=== PATIENT | female | born 1980 | race Caucasian/White ===

== ENCOUNTER 2019-05-11 18:59 | Emergency (ER) | payer OTHER ==
[~2019-05-11] VITALS: Ht 170.1 cm; Wt 112.5 kg
[~2019-05-11 18:59] MED LIST: BACTRIM DS 8001 TA1 PO; BIAXIN500 MG PO; CIPRO500 MG PO; CITALOPRAM20 MG PO; DEXAMETHASONE/TO5 ML OPH; HYDROCODONE BIT1 T11 PO; LISINOPRIL30 MG PO; METFORMIN HYDR500 MG PO; MOTRIN800 MG PO; SUMYCIN,ACHROM500 M1 PO
[2019-05-11 19:01] VITALS: BP 171/83
[2019-05-11] MEDS ORDERED: IBUPROFEN600 MG PO (20:36)
== END 2019-05-11 20:13 | disposition home or self-care (01) ==
LOC: ED 18:59
DX: S63.501A Unspecified sprain of right wrist, initial encounter (principal); I10 Essential (primary) hypertension; Z91.040 Latex allergy status; Z79.899 Other long term (current) drug therapy; W10.8XXA Fall (on) (from) other stairs and steps, initial encounter; Y93.89 Activity, other specified; Y92.89 Other specified places as the place of occurrence of the external cause; Y99.8 Other external cause status

== ENCOUNTER 2022-12-29 11:52 | Emergency (ER) | payer OTHER ==
[~2022-12-29] VITALS: Ht 170.1 cm; Wt 113.4 kg
[~2022-12-29 11:52] MED LIST changes: +IBUPROFEN600 MG PO
[2022-12-29 12:08] VITALS: BP 164/84
[2022-12-29] MEDS ORDERED: PREDNISONE20 M1 PO (12:30)
[2022-12-29] MEDS ORDERED: ARTIFICIAL TEAR1514 OP (12:30)
[2022-12-29] MEDS ORDERED: ARTIFICIAL EYE3.5 GM OP (12:30)
[2022-12-29] MEDS ORDERED: VALTREX1000 MG PO (12:30)
== END 2022-12-29 12:53 | disposition home or self-care (01) ==
LOC: ED 11:52
PROVIDERS: Nurse Practitioner Family
DX: G51.0 Bell's palsy (principal); E11.9 Type 2 diabetes mellitus without complications; I10 Essential (primary) hypertension; Z79.899 Other long term (current) drug therapy

== ENCOUNTER → 2024-10-07 | Outpatient (CLI) | payer OTHER ==
[~2024-10-07] MED LIST changes: +ARTIFICIAL EYE3.5 GM OP; +ARTIFICIAL TEAR1514 OP; +PERFLUTREN PROTEIN-A MICROSPHR 3 ML VIAL IV ONE; +PREDNISONE20 M1 PO; +VALTREX1000 MG PO
== END | disposition home or self-care (01) ==
LOC: CARD 13:46
PROVIDERS: ATTEND Family Medicine
DX: E11.59 Type 2 diabetes mellitus with other circulatory complications (principal); I15.2 Hypertension secondary to endocrine disorders

== ENCOUNTER 2025-02-07 18:02 | Emergency (ER) | payer OTHER ==
[~2025-02-07] VITALS: Ht 170.1 cm; Wt 113.4 kg
[~2025-02-07 18:02] MED LIST changes: -PERFLUTREN PROTEIN-A MICROSPHR 3 ML VIAL IV ONE
[2025-02-07 18:13] VITALS: BP 178/85
[2025-02-07] MEDS ORDERED: Lidocaine Hydrochloride 30 ML VIAL SC ONE (18:25)
[2025-02-07] MEDS ORDERED: Acetaminophen/Hydrocodone 5 MG/325 MG TABLET PO ONE (18:30)
[2025-02-07] MEDS ORDERED: Sulfamethoxazole/Trimethopri 1 TAB TAB PO ONE (18:30)
[2025-02-07] MEDS ORDERED: Ondansetron Hydrochloride 4 MG TAB PO ONE (18:30)
[2025-02-07] MEDS ORDERED: SEPTDS PO (18:32)
== END 2025-02-07 19:09 | disposition home or self-care (01) ==
LOC: ED 18:02
DX: N61.1 Abscess of the breast and nipple (principal); Z79.899 Other long term (current) drug therapy

== ENCOUNTER → 2025-04-27 | Outpatient (CLI) | payer OTHER ==
[~2025-04-27] MED LIST changes: +SEPTDS PO
== END | disposition home or self-care (01) ==
LOC: MRI 13:20
PROVIDERS: ATTEND Orthopaedic Surgery
DX: M17.12 Unilateral primary osteoarthritis, left knee (principal); M25.462 Effusion, left knee; M23.92 Unspecified internal derangement of left knee; M25.362 Other instability, left knee